=== PATIENT | male | born 1990 | race Caucasian/White ===

== ENCOUNTER 2016-08-15 17:16 | Emergency (ER) | payer OTHER ==
[~2016-08-15] VITALS: Ht 185.4 cm; Wt 79.0 kg
[2016-08-15 18:00] VITALS: BP 139/78; PULSE 101; RESP 16; TEMP 98.2; O2SAT 97
[2016-08-15 18:30] VITALS: BP 116/65; PULSE 110; RESP 18; O2SAT 98
[2016-08-15 18:35] LABS: AUTOMATED NEUTROPHIL # 9.2 TH/MM3 (1.8-7.7); BASOPHIL % 0.3 % (0.0-2.0); EOSINOPHIL # 0.1 TH/MM3 (0-0.4); EOSINOPHIL % 0.9 % (0.0-4.0); HEMATOCRIT 44.1 % (39.0-51.0); HEMO FLAGS DIFF FINAL; LYMPH % 8.8 % (9.0-44.0); MEAN CELL VOLUME 89.9 FL (80.0-100.0); MEAN CORPUSCULAR HEMOGLOBIN 31.2 PG (27.0-34.0); MEAN CORPUSCULAR HGB CONC 34.7 % (32.0-36.0); MONO % 5.2 % (0.0-8.0); NEUT % 84.8 % (16.0-70.0); PLATELET COUNT 271 TH/MM3 (150-450); RED CELL DISTRIBUTION WIDTH 12.7 % (11.6-17.2); WHITE BLOOD COUNT 10.9 TH/MM3 (4.0-11.0)
[2016-08-15 19:08] LABS: ANION GAP 8 MEQ/L (5-15); BICARBONATE 26.6 MEQ/L (21.0-32.0); BLOOD UREA NITROGEN 14 MG/DL (7-18); CHLORIDE 106 MEQ/L (98-107); GLOMERULAR FILTRATION RATE 90 ML/MIN (>89); POTASSIUM 3.7 MEQ/L (3.5-5.1); SODIUM (NA) 141 MEQ/L (136-145)
--- NOTE | 2016-08-15 19:10 | RADRPT ---
EXAM DATE/TIME: 08/15/2016 18:52 [place] COMPARISON: No previous studies available for comparison. INDICATIONS : Chest pain on and off for 1 week. Chest pain when lying down. MEDICAL HISTORY : Cardiovascular disease. SURGICAL HISTORY : CABG. ENCOUNTER: Initial ACUITY: 1 week PAIN SCORE: 5/10 LOCATION: Bilateral chest FINDINGS: A single view of the chest demonstrates the lungs to be symmetrically aerated without evidence of mas s, infiltrate or effusion. Previous median sternotomy. There is a valve overlying the AP window. The cardiomediastinal contours are unremarkable. Osseous structures are intact. CONCLUSION: 1. Previous median sternotomy. 2. Valve overlying the AP window appears somewhat high in location. 3. No obliterated. Servando Ochoa MD on August 15, 2016 at 19:07 Board Certified Radiologist. This report was verified electronically.
[2016-08-15 19:13] LABS: CREATINE KINASE 106 U/L (39-308)
[2016-08-15 19:25] LABS: CKMB 1.3 NG/ML (0.5-3.6)
--- NOTE | 2016-08-15 20:16 | PD ---
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 Patient presents to emergency department today with an episode of chest pain for sharp and then heavy on the left side of his chest accompanied with dizziness fatigue diaphoresis and sweaty palms. Patient states his happened to him in the past and was told it was anxiety. Patient on arrival states she is feeling better after nitroglycerin was administered in the ambulance. He is followed by a certified personal trainer at [facility]. Symptoms were just prior to arrival. [facility] Past Medical History Anxiety: Yes Cardiac Catheterization: Yes (2 DAYS OLD) Cardiovascular Problems: Yes Chest Pain: Yes Diminished Hearing: No Tetanus Vaccination: Unknown Influenza Vaccination: No Past Surgical History Body Medical Devices: BOVINE HEART VALVE Cardiac Surgery: Yes (OPEN HEART X2, VALVE REPLACEMENT) Social History Alcohol Use: Yes (ONCE A WEEK) Tobacco Use: No Substance Use: No Allergies-Medications (Allergen,Severity, Reaction): Coded Allergies: No Known Allergies (Unverified , 08/15/16) Reported Meds & Prescriptions Reported Meds & Active Scripts Active No Active Prescriptions or Reported Medications Review of Systems Except as stated in HPI: all other systems reviewed are Neg Physical Exam Narrative GENERAL: Well-developed well-nourished comfortable in no apparent distress. SKIN: Warm and dry. HEAD: Atraumatic. Normocephalic. EYES: Pupils equal and round. No scleral icterus. No injection or drainage. ENT: No nasal bleeding or discharge. Mucous membranes pink and moist. NECK: Trachea midline. No JVD. CARDIOVASCULAR: Regular rate and rhythm. 3 Out of 6 systolic murmur best heard in the left sternal border.. Midline sternotomy scar well healed. 2+ bilateral equal pulses in all 4 extremities. RESPIRATORY: No accessory muscle use. Clear to auscultation. Breath sounds equal bilaterally. GASTROINTESTINAL: Abdomen soft, non-tender, nondistended. Hepatic and splenic margins not palpable. MUSCULOSKELETAL: No obvious deformities. No clubbing. No cyanosis. No edema. NEUROLOGICAL: Awake and alert. No obvious cranial nerve deficits. Motor grossly within normal limits. Normal speech. PSYCHIATRIC: Appropriate mood and affect; insight and judgment normal. Data Data Last Documented VS Vital Signs Date Time Temp Pulse Resp B/P Pulse Ox O2 Delivery O2 Flow Rate FiO2 08/15/16 20:39 89 18 111/62 98 Room Air 08/15/16 18:00 98.2 Orders Electrocardiogram (08/15/16 18:16) Complete Blood Count With Diff (08/15/16 18:16) Basic Metabolic Panel (Bmp) (08/15/16 18:16) Ckmb (Isoenzyme) Profile (08/15/16 18:16) Troponin I (08/15/16 18:16) Chest, Single Ap (08/15/16 18:16) Iv Access Insert/Monitor (08/15/16 18:16) Ecg Monitoring (08/15/16 18:16) Oxygen Administration (08/15/16 18:16) Oximetry (08/15/16 18:16) CKMB (08/15/16 18:20) CKMB% (08/15/16 18:20) Electrocardiogram (08/15/16 ) Troponin I (08/15/16 19:30) Labs Laboratory Tests Test 08/15/16 08/15/16 18:20 20:17 White Blood Count 10.9 TH/MM3 Red Blood Count 4.90 MIL/MM3 Hemoglobin 15.3 GM/DL Hematocrit 44.1 % Mean Corpuscular Volume 89.9 FL Mean Corpuscular Hemoglobin 31.2 PG Mean Corpuscular Hemoglobin 34.7 % Concent Red Cell Distribution Width 12.7 % Platelet Count 271 TH/MM3 Mean Platelet Volume 7.7 FL Neutrophils (%) (Auto) 84.8 % Lymphocytes (%) (Auto) 8.8 % Monocytes (%) (Auto) 5.2 % Eosinophils (%) (Auto) 0.9 % Basophils (%) (Auto) 0.3 % Neutrophils # (Auto) 9.2 TH/MM3 Lymphocytes # (Auto) 1.0 TH/MM3 Monocytes # (Auto) 0.6 TH/MM3 Eosinophils # (Auto) 0.1 TH/MM3 Basophils # (Auto) 0.0 TH/MM3 CBC Comment DIFF FINAL Differential Comment Sodium Level 141 MEQ/L Potassium Level 3.7 MEQ/L Chloride Level 106 MEQ/L Carbon Dioxide Level 26.6 MEQ/L Anion Gap 8 MEQ/L Blood Urea Nitrogen 14 MG/DL Creatinine 1.00 MG/DL Estimat Glomerular Filtration 90 ML/MIN Rate Random Glucose 133 MG/DL Calcium Level 8.8 MG/DL Total Creatine Kinase 106 U/L Creatine Kinase MB 1.3 NG/ML Troponin I LESS THAN 0.02 LESS THAN 0.02 NG/ML NG/ML MDM Medical Decision Making Medical Screen Exam Complete: Yes Emergency Medical Condition: Yes Interpretation(s) EKG shows sinus tachycardia rate of 105, biatrial enlargement, T wave inversions in V4 through V6 as well as II, III, and aVF. This is an abnormal EKG but nondiagnostic for STEMI, no previous for comparison. Repeat EKG no change from EKG 2 hours earlier. Differential Diagnosis ACS seems unlikely, single episode, valvular failure seems unlikely, anxiety, electrolyte abnormality, anemia. Narrative Course Patient was roomed in the emergency department, he appears quite well on my initial evaluation. Further history he states that his lightheadedness and shortness of breath worsened when he sat down and did not thing and on activity improved. This further lowers my index of suspicion. I discussed with the patient that his troponin negative 2 EKG abnormal but nonacute evolving in the emergency department. Likely he does have a history of abnormal EKG given his history of pulmonic valve dysfunction. However I cannot prove this at this time. The patient and I had an extensive discussion with family members regarding his symptoms. He does endorse some shoulder pain but states his been ongoing for some time. Mom is under the impression he needs an MRI for his shoulder as an outpatient and this may be considered. He has been admitted to other facilities for very similar circumstances involving his presyncopal episodes. Currently I think while the patient does have structural heart disease he is quite low risk for ACS. He does have heart murmur but is perfusing all of his extremities appropriately. Given the history that it worsens when he sits still and asked to gets better on exertion clinically he does not have a pulmonic valve failure. After lengthy discussion and shared decision making the patient would like to go home and follow-up with his own certified personal trainer. I did discuss with him could consider overnight observation given his history and EKG changes he verbalized understanding and except the small risk and would like to go home and follow up with his primary care physician as well as his certified personal trainer. Diagnosis Primary Impression: Atypical chest pain Additional Instructions: Call your primary care physician and certified personal trainer tomorrow. Scripts No Active Prescriptions or Reported Meds Disposition: 01 DISCHARGE HOME Condition: Liu Bernal MD Aug 15, 2016 20:16
[2016-08-15 20:39] VITALS: BP 111/62; PULSE 89; RESP 18; O2SAT 98
--- NOTE | 2016-08-16 11:09 | EKG ---
Date Performed: 08/15/2016 Time Performed: 18:21:32 PTAGE: 25 years EKG: SINUS TACHYCARDIA RIGHT ATRIAL ABNORMALITY INCOMPLETE RIGHT BUNDLE BRANCH BLOCK MODERATE T WAVE ABNORMALITY POSSIBLY LEFT VENTRICULAR HYPERTROPHY OR ISCHEMIA ABNORMAL ECG NO PREVIOUS TRACING DOCTOR: Omar Dhaliwal Interpretating Date/Time 08/16/2016 11:07:52
--- NOTE | 2016-08-16 11:11 | EKG ---
Date Performed: 08/15/2016 Time Performed: 20:12:12 PTAGE: 25 years EKG: SINUS TACHYCARDIA RIGHT ATRIAL ABNORMALITY RIGHT VENTRICULAR CONDUCTION DELAY LATERAL ST-T WAVE ABNORMALITY WHICH MAY BE SLIGHTLY IMPROVED FROM THE PRIOR TRACING NONDIAGNOSTIC Q WAVES IN THE I NFERIOR LEADS ABNORMAL ECG PREVIOUS TRACING : 08/15/2016 18.21 DOCTOR: Omar Dhaliwal Interpretating Date/Time 08/16/2016 11:09:03
== END 2016-08-15 21:18 | disposition home or self-care (01) ==
LOC: NEPD 17:16 → NEPC 21:18
DX: R07.89 Other chest pain (principal); R42 Dizziness and giddiness; R53.83 Other fatigue; R61 Generalized hyperhidrosis; R94.31 Abnormal electrocardiogram [ECG] [EKG]; Z95.3 Presence of xenogenic heart valve; Z86.79 Personal history of other diseases of the circulatory system; Z86.59 Personal history of other mental and behavioral disorders
CPT/HCPCS: 71010; 80048; 82550; 82552; 84484; 85025; 93005